=== PATIENT | male | born 1950 | race Caucasian/White ===

== ENCOUNTER → 2019-03-01 | Outpatient (CLI) | payer MEDICARE, OTHER ==
[~2019-03-01] MED LIST: ALBU90OI; ALBU90OI INH; ALLO300 PO; ASPI325 PO; ATOR20; BREO ELLIPTA 11 EACH; CEPH250A PO; CIPRSO LEFTEYE; COLC.6 PO; DOXY100 PO; DULERA 100 MCG/13 GM INH; GUAI600T33 PO; HYDACE5 PO; IRBE75; LOSA50 PO; METF500C; METO50ER PO; RXHYDACE PO; TAMS.4ER PO; Toprol Xl50 MG PO
== END | disposition home or self-care (01) ==
LOC: LAB SHORT 11:20 → PLD 11:20
DX: C44.622 Squamous cell carcinoma of skin of right upper limb, including shoulder (principal)
CPT/HCPCS: 88305

== ENCOUNTER → 2019-04-03 | Outpatient (CLI) | payer MEDICARE, OTHER | END | disposition home or self-care (01) | LOC: LAB SHORT 07:21 → PLD 07:21 | DX: C44.622 Squamous cell carcinoma of skin of right upper limb, including shoulder (principal) | CPT/HCPCS: 88305 ==

== ENCOUNTER → 2019-11-07 | Outpatient (CLI) | payer MEDICARE, OTHER | END | disposition home or self-care (01) | LOC: PLD 08:49 → LAB SHORT 08:49 | DX: C44.329 Squamous cell carcinoma of skin of other parts of face (principal); C44.629 Squamous cell carcinoma of skin of left upper limb, including shoulder; D04.39 Carcinoma in situ of skin of other parts of face; L57.0 Actinic keratosis | CPT/HCPCS: 88305 ==

== ENCOUNTER → 2019-11-27 | Outpatient (CLI) | payer MEDICARE, OTHER | LOC: PLD 15:09 → LAB SHORT 15:09 | DX: L57.0 Actinic keratosis (principal) | CPT/HCPCS: 88305 ==

== ENCOUNTER → 2020-12-04 | Outpatient (CLI) | payer MEDICARE, OTHER | END | disposition home or self-care (01) | LOC: LAB SHORT 12:47 → LAB 12:47 | DX: L08.0 Pyoderma (principal) | CPT/HCPCS: 87070; 87077; 87147; 87186; 87205 ==

== ENCOUNTER → 2021-09-29 | Outpatient (CLI) | payer MEDICARE, OTHER ==
[~2021-09-29] MED LIST changes: +Aldactone50 MG PO; +IMODIUM A-D2 M1 PO; +MICROZIDE12.5 MG PO
== END | disposition home or self-care (01) ==
LOC: LAB SHORT 07:45
DX: D04.5 Carcinoma in situ of skin of trunk (principal)
CPT/HCPCS: 88305

== ENCOUNTER → 2021-10-28 | Outpatient (CLI) | payer MEDICARE, OTHER | END | disposition home or self-care (01) | LOC: LAB SHORT 08:15 | DX: L57.0 Actinic keratosis (principal) | CPT/HCPCS: 88305 ==

== ENCOUNTER → 2022-12-15 | Outpatient (CLI) | payer MEDICARE, OTHER | LOC: PLD 07:58 → LAB SHORT 07:58 | DX: D48.5 Neoplasm of uncertain behavior of skin (principal) | CPT/HCPCS: 88305 ==

== ENCOUNTER 2023-02-14 16:30 | Emergency (ER) | payer MEDICARE, OTHER ==
[~2023-02-14] VITALS: Ht 182.9 cm; Wt 79.4 kg
[~2023-02-14 16:30] MED LIST changes: -ATOR20; +ATOR20 PO; +ELIQUIS5 M2 PO; +ELIQUIS5 MG PO; +GABA400 PO; +GLUCOPHAGE1000 M1 PO; +JARDIANCE25 MG PO; +MELA3 PO; -METF500C; +METO100ER PO; +MIRALAX17 GM PO; +MUPIROCIN2210 TOP; +ONDA4ODT; +[UNRECOGNIZED DRUG - OTHER] PO
[2023-02-14 17:04] LABS: Source, Urine Voided
[2023-02-14 17:12] LABS: BASOPHILS ABSOLUTE AUTO 0.02 K/mm3 (0.00-0.23); BASOPHILS PERCENT AUTO 0 % (0-2); EOSINOPHILS PERCENT AUTO 1 % (0-6); Hematocrit 33.5 % (37.0-53.0); Hemoglobin 10.4 g/dL (13.5-17.5); IMMATURE GRAN ABSOLUTE AUTO 0.02 K/mm3 (0.00-0.10); IMMATURE GRAN PERCENT AUTO 0 % (0-1); LYMPHOCYTES ABSOLUTE AUTO 0.39 K/mm3 (0.84-5.20); LYMPHOCYTES PERCENT AUTO 6 % (21-46); MONOCYTES ABSOLUTE AUTO 1.09 K/mm3 (0.16-1.47); MONOCYTES PERCENT AUTO 15 % (4-13); Mean Corpuscular Volume 90 fL (80-100); Mean Platelet Volume 9.4 fL (9.1-12.4); NEUTROPHILS ABSOLUTE AUTO 5.45 K/mm3 (1.96-9.15); NEUTROPHILS PERCENT AUTO 77 % (41-73); Platelet Count 599 K/mm3 (150-400); RDW Coefficient Variation 15.6 % (11.7-14.2); Red Blood Cell Count 3.71 M/mm3 (4.30-5.90); White Blood Cell Count 7.07 K/mm3 (4.00-11.30)
[2023-02-14 17:15] LABS: Bilirubin, Urine Neg (Neg); Blood, Urine Neg (Neg); Glucose Qualitative, Urine 4+ (Neg); Ketones, Urine Neg (Neg); Leukocyte Esterase, Urine Neg (Neg); Nitrite, Urine Neg (Neg); Protein, Urine Neg (Neg); Urobilinogen, Urine NORM (Normal)
[2023-02-14 17:25] LABS: Albumin, Blood 1.9 g/dL (3.4-5.0); Albumin/Globulin Ratio 0.4 (0.8-1.8); Bilirubin, Total 0.1 mg/dL (0.1-1.0); Bun/Creatinine Ratio 21.6 (12.0-20.0); Calcium, Blood 9.5 mg/dL (8.5-10.1); Creatinine, Blood 1.02 mg/dL (0.60-1.20); Globulin, Blood 4.3 g/dL (2.2-4.0); Potassium, Blood 4.3 mmol/L (3.5-5.5); Total Protein, Blood 6.2 g/dL (6.4-8.2)
[2023-02-14 17:35] LABS: Color, Urine Pale Yellow (P-Yellow)
[2023-02-14 17:36] LABS: Appearance, Urine Clear (Clear)
[2023-02-14] MEDS ORDERED: [UNRECOGNIZED DRUG - OTHER] PO (19:16)
[2023-02-14 20:30] VITALS: BP 133/66
== END 2023-02-14 21:10 | disposition home or self-care (01) ==
LOC: ER 16:30
PROVIDERS: Emergency Medicine
DX: E11.65 Type 2 diabetes mellitus with hyperglycemia (principal); Z88.8 Allergy status to other drugs, medicaments and biological substances; Z88.6 Allergy status to analgesic agent; Z79.899 Other long term (current) drug therapy; Z79.84 Long term (current) use of oral hypoglycemic drugs; I10 Essential (primary) hypertension; J45.909 Unspecified asthma, uncomplicated; G47.33 Obstructive sleep apnea (adult) (pediatric); M10.9 Gout, unspecified; M19.90 Unspecified osteoarthritis, unspecified site
CPT/HCPCS: 80053; 81003; 82947; 85025; 99285; J1815; J7030

== ENCOUNTER 2023-02-27 17:07 | Inpatient (IN) | payer MEDICARE, OTHER ==
[~2023-02-27] VITALS: Ht 182.9 cm; Wt 79.0 kg
[2023-02-27 17:57] LABS: BASOPHILS ABSOLUTE AUTO 0.04 K/mm3 (0.00-0.23); BASOPHILS PERCENT AUTO 0 % (0-2); EOSINOPHILS ABSOLUTE AUTO 0.14 K/mm3 (0.00-0.68); EOSINOPHILS PERCENT AUTO 2 % (0-6); Hematocrit 33.5 % (37.0-53.0); Hemoglobin 10.7 g/dL (13.5-17.5); IMMATURE GRAN ABSOLUTE AUTO 0.03 K/mm3 (0.00-0.10); IMMATURE GRAN PERCENT AUTO 0 % (0-1); LYMPHOCYTES ABSOLUTE AUTO 0.61 K/mm3 (0.84-5.20); LYMPHOCYTES PERCENT AUTO 7 % (21-46); MONOCYTES ABSOLUTE AUTO 1.14 K/mm3 (0.16-1.47); MONOCYTES PERCENT AUTO 12 % (4-13); Mean Corpuscular HGB 27.9 pg (26.0-34.0); Mean Corpuscular HGB Conc 31.9 g/dL (31.5-36.5); Mean Corpuscular Volume 87 fL (80-100); Mean Platelet Volume 8.4 fL (9.1-12.4); NEUTROPHILS ABSOLUTE AUTO 7.28 K/mm3 (1.96-9.15); NEUTROPHILS PERCENT AUTO 79 % (41-73); Platelet Count 766 K/mm3 (150-400); RDW Coefficient Variation 15.4 % (11.7-14.2); RDW Standard Deviation 49.1 fL (35.1-46.3); Red Blood Cell Count 3.84 M/mm3 (4.30-5.90); White Blood Cell Count 9.24 K/mm3 (4.00-11.30)
[2023-02-27 18:18] LABS: Albumin, Blood 1.9 g/dL (3.4-5.0); Albumin/Globulin Ratio 0.4 (0.8-1.8); Bilirubin, Total 0.4 mg/dL (0.1-1.0); Bun/Creatinine Ratio 24.4 (12.0-20.0); Calcium, Blood 9.4 mg/dL (8.5-10.1); Creatinine, Blood 0.86 mg/dL (0.60-1.20); Globulin, Blood 4.3 g/dL (2.2-4.0); Potassium, Blood 4.6 mmol/L (3.5-5.5); Total Protein, Blood 6.2 g/dL (6.4-8.2)
[2023-02-27 18:48] LABS: Source, Urine Clean Catch
[2023-02-27 18:58] LABS: Appearance, Urine Clear (Clear); Bilirubin, Urine Neg (Neg); Blood, Urine Neg (Neg); Glucose Qualitative, Urine 4+ (Neg); Ketones, Urine Neg (Neg); Leukocyte Esterase, Urine Neg (Neg); Nitrite, Urine Neg (Neg); Protein, Urine Neg (Neg); Urobilinogen, Urine NORM (Normal)
[2023-02-27 19:28] LABS: Color, Urine Pale Yellow (P-Yellow)
[2023-02-27 21:12] LABS: Influenza A, PCR NEGATIVE (NEGATIVE); Influenza B, PCR NEGATIVE (NEGATIVE); Resp Syncytial Virus, PCR NEGATIVE (NEGATIVE); SARS-Cov-2 (COVID-19) PCR, MMC NEGATIVE (NEGATIVE)
[2023-02-27 23:38] VITALS: BP 149/76
[2023-02-28] MEDS ORDERED: BASAGLAR K100 UNIT/3 SC (00:37)
[2023-02-28] MEDS ORDERED: Ondansetron Odt8 MG PO (00:39)
[2023-02-28] MEDS ORDERED: REMERON30 M9 PO (00:39)
[2023-02-28] MEDS ORDERED: METO5A PO (00:40)
[2023-02-28 05:14] LABS: Bun/Creatinine Ratio 26.3 (12.0-20.0); Calcium, Blood 9.1 mg/dL (8.5-10.1); Creatinine, Blood 0.84 mg/dL (0.60-1.20); Potassium, Blood 4.2 mmol/L (3.5-5.5)
--- NOTE | 2023-02-28 06:41 | NUR ---
PATIENT A&OX4, VERY PAINFUL AT INCISION AREA WOUND UNDER UMBILICUS. SCANT AMOUNT OF SEROUS FLUID FROM THE WOUND. AREA IS SEVERELY SWOLLEN AND DISTENDED. MADYSON IS AWARE OF HIS NEED TO MOVE NORTH TO [facility] TO SEE HIS SURGEON, BUT IS RELIEVED TO BE RECEIVING IV ANTIBIOTICS IN THE INTERIM. WEAKNESS LEFT LEG CAUSES HIM TO USE A WALKER FOR SUPPORT. CURRENTLY, HE ALSO NEEDS ONE STAFF ASSIST WITH HIS FWW.
--- NOTE | 2023-02-28 07:35 | NUR ---
MD NOTIFY AT SHIFT REPORT NOTED TO HAVE SMALL PURULENT LEAKAGE FROM ABDOMINAL WOUND. SUDDEN COPIOUS AMOUNT OF PURULENT DRAINAGE SOAKING GAUZE PADS, UNPLEASANT ODOR. DR FERRO CALLED AND NOTIFIED. PT DENIES PAIN.
[2023-02-28 12:28] LABS: International Normalized Ratio 1.15
[2023-02-28 12:49] LABS: BASOPHILS ABSOLUTE AUTO 0.03 K/mm3 (0.00-0.23); BASOPHILS PERCENT AUTO 0 % (0-2); EOSINOPHILS ABSOLUTE AUTO 0.16 K/mm3 (0.00-0.68); EOSINOPHILS PERCENT AUTO 2 % (0-6); Hematocrit 31.9 % (37.0-53.0); Hemoglobin 9.9 g/dL (13.5-17.5); IMMATURE GRAN ABSOLUTE AUTO 0.02 K/mm3 (0.00-0.10); IMMATURE GRAN PERCENT AUTO 0 % (0-1); LYMPHOCYTES ABSOLUTE AUTO 0.48 K/mm3 (0.84-5.20); LYMPHOCYTES PERCENT AUTO 6 % (21-46); MONOCYTES ABSOLUTE AUTO 1.27 K/mm3 (0.16-1.47); MONOCYTES PERCENT AUTO 17 % (4-13); Mean Corpuscular HGB 27.3 pg (26.0-34.0); Mean Corpuscular Volume 88 fL (80-100); Mean Platelet Volume 8.9 fL (9.1-12.4); NEUTROPHILS ABSOLUTE AUTO 5.66 K/mm3 (1.96-9.15); NEUTROPHILS PERCENT AUTO 74 % (41-73); Platelet Count 775 K/mm3 (150-400); RDW Coefficient Variation 15.3 % (11.7-14.2); Red Blood Cell Count 3.63 M/mm3 (4.30-5.90); White Blood Cell Count 7.62 K/mm3 (4.00-11.30)
[2023-02-28 14:51] VITALS: BP 130/73
--- NOTE | 2023-02-28 15:27 | NUR ---
SHIFT SUMMARY MR DAVIS IS A&OX4. AT 0725HRS ABDOMINAL WOUND STARTED TO PUT OUT COPIOUS AMOUNTS OF PURULENT ODIFEROUS FLUID. IT CONTINUED TO LEAK COPIOUS AMOUNTS THAT WERE CONTINUALLY CLEANED AWAY FROM HIM WITH TOWELS FOR APPROX 1 HOUR. SINCE THEN THE WOUND HAS BEEN PADDED WITH 10 4X4 GAUZE AND AN ABD PAD WHICH HAS BEEN CHANGED 5 TIMES SO FAR. THERE ARE TWO HOLES IN THE WOUND, THE LARGER ONE IS THE LOWER HOLE AT AROUND 1CM ROUND. THESE OPENED UP AT THE TIME IT STARTED LEAKING. PHOTO PUT IN THE CHART. THROUGHOUT THE EVENT MR DAVIS HAS HAD MINIMAL PAIN. THE SWELLING AROUND THE WOUND HAS DECREASED. THIS MORNING GRIS CALLED FROM [facility], SHE IS PART OF THE TEAM THAT HAS BEEN CARING FOR . MR DAVIS GAVE VERBAL CONSENT TO SHARE INFORMATION REGARDING HIS HEALTH. THE GOAL IS TO TRANSPORT MR DAVIS TO [facility] WHEN A BED IS AVAILABLE. PT HAS BEEN SEEN BY DR FERRO AND DR PARKS THIS AM. DIET CHANGED TO CLEAR LIQUID DIABETIC DIET AFTER EATING PART OF HIS LUNCH. HEPARIN GTT STARTED AT 1303HRS AFTER NEW PIV PLACEMENT. PT HAS EXCORIATED COCCYX AREA THAT HE SAID HAS BEEN DUE TO PRIOR DIARRHEA AND BED REST. HE SAID HE HAS BEEN USING ZINC OXIDE ON IT. ZINC OXIDE APPLIED HERE AND PRESSURE RELIEF WITH PILLOWS/TURNS. NO NAUSEA, NO EMESIS. FAMILY WAS AT BEDSIDE THIS AM. BED LOW, CALL LIGHT IN REACH.
[2023-02-28 19:29] VITALS: BP 126/64
[2023-03-01 01:50] LABS: Hematocrit 28.8 % (37.0-53.0); Hemoglobin 9.2 g/dL (13.5-17.5); Mean Corpuscular HGB 27.5 pg (26.0-34.0); Mean Corpuscular HGB Conc 31.9 g/dL (31.5-36.5); Mean Corpuscular Volume 86 fL (80-100); Mean Platelet Volume 8.4 fL (9.1-12.4); Platelet Count 680 K/mm3 (150-400); RDW Coefficient Variation 15.4 % (11.7-14.2); RDW Standard Deviation 48.5 fL (35.1-46.3); Red Blood Cell Count 3.35 M/mm3 (4.30-5.90); White Blood Cell Count 5.41 K/mm3 (4.00-11.30)
[2023-03-01 01:55] LABS: Albumin, Blood 1.6 g/dL (3.4-5.0); Anion Gap 6 mmol/L (6-16); Blood Urea Nitrogen 20 mg/dL (8-24); Bun/Creatinine Ratio 24.2 (12.0-20.0); CO2, Blood 27 mmol/L (21-32); Calcium, Blood 8.7 mg/dL (8.5-10.1); Chloride, Blood 103 mmol/L (98-108); Creatinine, Blood 0.83 mg/dL (0.60-1.20); Glomerular Filtration Rate 92 (60-); Glucose, Blood 122 mg/dL (70-99); Phosphorus, Blood 2.8 mg/dL (2.5-4.9); Potassium, Blood 4.2 mmol/L (3.5-5.5); Sodium, Blood 136 mmol/L (136-145)
[2023-03-01 02:49] VITALS: BP 124/65
--- NOTE | 2023-03-01 06:09 | NUR ---
SHIFT SUMMARY: MADYSON IS A&OX4. VSS, NO ACUTE EVENTS OVERNIGHT. HEPARIN INFUSING TO RIGHT ARM, IV ABX TO LEFT. HE HAS USED THE URINAL WITHOUT DIFFICULTY THIS SHIFT AND IS TOLERATING THE CLEAR LIQUID DIET WELL. PT REQUESTED ADDITIONAL MIRALAX D/T HISTORY OF BEING PRESCRIBED MIRALAX BOWEL PREP PRIOR TO HIS ABDOMINAL SURGERIES. PT IS AWAITING TRANSFER TO [facility]. HE USES HIS CALL LIGHT APPROPRIATELY. DRESSING TO ABDOMEN CHANGED THIS SHIFT. PT IS LYING IN BED WITH THE CALL LIGHT IN REACH. WCTM UNTIL REPORT IS GIVEN TO DAY SHIFT RN.
[2023-03-01 08:20] VITALS: BP 126/69
[2023-03-01 11:06] LABS: Vancomycin, Trough 17.1 ug/mL (5.0-10.0)
--- NOTE | 2023-03-01 12:35 | NUR ---
PER [place] TRANSFER RN THERE ARE NO BEDS AVAILABLE AT THIS TIME. UPDATE ON PT STATUS GIVEN TO DIAMOND PICHARDO.
[2023-03-01 15:27] VITALS: BP 118/69
--- NOTE | 2023-03-01 19:46 | NUR ---
PT PLEASANT TODAY, HAS BEEN WAITING FOR BED IN [facility]. NEEDS FURTHER SURGICAL INTERVENTION. WE ARE STILL WAITING BED. 2 HOLES IN ABD, CHANGED DRESSING TODAY. PT RECEIVING ABX AND HEPARIN FOR RECENT PE. NOT NEW CONCERNS NOTED. BED IN LOW POSITION, CALL LITE IN REACH, CALLS APROP
[2023-03-01 19:54] VITALS: BP 120/72
[2023-03-02 00:17] LABS: Hematocrit 29.7 % (37.0-53.0); Hemoglobin 9.6 g/dL (13.5-17.5); Mean Corpuscular HGB 27.3 pg (26.0-34.0); Mean Corpuscular HGB Conc 32.3 g/dL (31.5-36.5); Mean Corpuscular Volume 84 fL (80-100); Mean Platelet Volume 7.9 fL (9.1-12.4); NRBC ABSOLUTE 0.02 K/mm3 (0.00-0.02); NRBC Auto 0.4 /100 WBC (0.0-0.2); Platelet Count 703 K/mm3 (150-400); RDW Coefficient Variation 15.1 % (11.7-14.2); RDW Standard Deviation 46.2 fL (35.1-46.3); Red Blood Cell Count 3.52 M/mm3 (4.30-5.90); White Blood Cell Count 5.35 K/mm3 (4.00-11.30)
[2023-03-02 01:54] VITALS: BP 120/72
== END 2023-03-02 03:16 | DRG 863 ==
LOC: ER 17:07 → MEDS 21:58
PROVIDERS: Internal Medicine; Nurse Practitioner Acute Care; Physician Assistant; ADMIT Student in an Organized Health Care Education/Training Program
DX: K68.11 Postprocedural retroperitoneal abscess (principal); Z20.822 Contact with and (suspected) exposure to COVID-19; I10 Essential (primary) hypertension; J45.909 Unspecified asthma, uncomplicated; I48.0 Paroxysmal atrial fibrillation; G47.33 Obstructive sleep apnea (adult) (pediatric); M10.9 Gout, unspecified; E11.9 Type 2 diabetes mellitus without complications; E78.5 Hyperlipidemia, unspecified; E66.9 Obesity, unspecified; N40.0 Benign prostatic hyperplasia without lower urinary tract symptoms; Z68.23 Body mass index [BMI] 23.0-23.9, adult; Z98.890 Other specified postprocedural states; Z88.6 Allergy status to analgesic agent; Z79.4 Long term (current) use of insulin; Z79.01 Long term (current) use of anticoagulants; Z88.8 Allergy status to other drugs, medicaments and biological substances; Z79.899 Other long term (current) drug therapy; Y83.8 Other surgical procedures as the cause of abnormal reaction of the patient, or of later complication, without mention of misadventure at the time of the procedure
CPT/HCPCS: 0241U; 36415; 36416; 74177; 80048; 80053; 80069; 80202; 81003; 82947; 84145; 85025; 85027; 85610; 85730; 96374-59; 99285-25; A9270; J0295; J1644; J1815; J3370; J7050; Q9967